=== PATIENT | female | born 1965 | race Caucasian/White ===

== ENCOUNTER 2017-04-18 21:46 | Inpatient (IN) | payer BC, OTHER ==
--- NOTE | ~2017-04-18 | CR72 ---
[facility] A Service of [facility] & [facility] RADIOLOGY TEXT RESULTS PATIENT: ROBBIN JUAREZ LOCATION: [facility] [address]-12 : [birth year] UNIT #: [id number] AGE: [address]: Evette Bender MD SEX: F ORDER DR: [id number] [facility] [address] [facility] [address] [place], [place] [address] [id number] I MR#: [id number] Acc #: [id number] NAME: ROBBIN JUAREZ : 1965 SEX: F STUDY DATE/TIME: 04/18/2017 23:17 UNIT: CED ROOM: 62812 STUDY DESCRIPTION: CR Chest Single View Portable Attending Physician: Evette Bender M.D. Ordering Physician: Carson Valles M.D. Primary Care Physician: Judy Burgos M.D. MEDICAL IMAGING REPORT This report is preliminary unless electronic signature is present EXAM Single view chest INDICATIONS Shortness of air and cough. FINDINGS Single portable AP view of the chest compared to 11/24/2016. Heart and mediastinal contours are normal. The lungs are clear. No pleural effusion. IMPRESSION No acute findings. Dictated by... Josue Will M.D. THIS IS AN ELECTRONICALLY VERIFIED REPORT Josue Will M.D. at 04/19/2017 3:25 AM RPC/ermias TD: 04/19/2017 03:16 JOB #: [id number] MEDICAL IMAGING REPORT Page 1 of 1 COPY
--- NOTE | ~2017-04-18 | EKG ---
PATIENT: ROBBIN JUAREZ UNIT #: [id number] Ventricular Rate: 113 BPM Atrial Rate: 113 BPM P-R Interval: 160 ms QRS Duration: 80 ms Q-T Interval: 346 ms QTC Calculation(Bezet): 474 ms P Steedman: 49 degrees Calculated R Steedman: 44 degrees Calculated T Steedman: 44 degrees Diagnosis Line: Sinus tachycardia Diagnosis Line: Possible Left atrial enlargement Diagnosis Line: Borderline ECG Diagnosis Line: When compared with ECG of 07-JAN-2011 11:30, Diagnosis Line: Vent. rate has increased BY 43 BPM Diagnosis Line: Confirmed by YING CERRATO MD ([id number]) on Diagnosis Line: 04/20/2017 8:46:33 AM INTERPRETING MD: SAQIB PINZON
--- NOTE | ~2017-04-18 | BMI ---
[facility] Nutrition Therapy DATE: 04/19/17 Patient: ROBBIN Bishop READER Physician: JONAS Address: [address] Room/Bed: [address] [place] [address], Zip: [place] [address] Admit Date: 04/19/17 Date of : [birth year] Height: 4 11 Weight: 204 92.53 HIGH BMI NOTE: DX: 51 Y.O. FEMALE ADMITTED FOR RESP FAILURE, ASTHMA EXAC ANTHROPOMETRICS: 4'11", WT: 203# (92 KG), BMI: 41.0 DIET: CC INTERVENTION: 1. CC DIET RECOMMENDATIONS: 1. RECOMMEND TO ADD HH TO CURRENT DIET ORDER ABOVE TO PROMOTE GRADUAL WEIGHT LOSS TOWARDS HEALTHY BMI (19.0-25.0) OR +/-10%IBW RD WILL F/U PER PROTOCOL Respectfully, LICO CARLSON MS, RD, LD Food and Nutrition[facility] cc: client file
--- NOTE | ~2017-04-18 | HP ---
Unit #: [id number] #: [id number] Patient: ROBBIN JUAREZ [id number] [address] [place], [place] [address] [id number] I MR#: [id number] NAME: ROBBIN JUAREZ. ROOM: 22666 Age: 51 Sex: F Admission Date: 04/19/2017 : 1965 Attending Physician: Evette Bender M.D. Primary Care Physician: Judy Burgos M.D. HISTORY AND PHYSICAL CHIEF COMPLAINT Asthma exacerbation with acute hypoxic respiratory failure. HISTORY This pleasant 51-year-old female with asthma, hypothyroidism is admitted for asthma exacerbation. The patient was in her usual state of health until two to three days prior to admission when she developed a deep cough, occasionally productive yellow sputum with bronchospasm, shortness of breath, malaise, chills, and decreased energy. She presented to this emergency department where her O2 sats were as low as 89% to 91% on range of motion air. Chest x-ray is negative. She was treated with 125 mg of Solu-Medrol and 10 mL of Robitussin AC. Currently, her breathing has improved. PAST MEDICAL HISTORY 1. Anxiety and depression. 2. Hypothyroidism. 3. Seasonal allergies. 4. Genital HSV. 5. Asthma. 6. Tendonitis versus plantar fasciitis. 7. BTL. 8. Surgery for heel spurs. ALLERGIES Keflex, penicillin and sulfa. HOME MEDICATIONS 1. Acyclovir daily. 2. Singulair daily. 3. Zyrtec daily. 4. Synthroid 0.05 mg daily. 5. Ventolin as needed. 6. Flonase nasal spray. FAMILY HISTORY Malignancy. Negative for heart or lung disease. SOCIAL HISTORY The patient lives with her boyfriend and children. Was smoking on pack per day of tobacco until three years ago when she stopped smoking. Seldom drinks alcohol. Unit #: [id number] #: [id number] Patient: ROBBIN JUAREZ REVIEW OF SYSTEMS Notable for shortness of breath, wheezing, productive cough, depression/anxiety, hypothyroidism, seasonal allergies, above mentioned surgeries, genital HSV and plantar fasciitis along with asthma. All other systems were reviewed and are otherwise negative. PHYSICAL EXAMINATION GENERAL APPEARANCE: Pleasant, obese 51-year-old female, currently in no acute distress. VITAL SIGNS: Temperature 98.2, pulse 111, respirations 20, blood pressure 150/93. O2 saturations were as low was 89% to 91% on room air. HEENT: Eyes PERRLA. Extraocular muscles are intact. Pharynx is benign. NECK: Supple without adenopathy or thyromegaly. CHEST: Rhonchi and expiratory wheeze. CARDIAC: Normal S1 and S2 without murmur. ABDOMEN: Bowel sounds are present. No hepatosplenomegaly, tenderness or masses. EXTREMITIES: Without clubbing, cyanosis or edema. Pedal pulses are present. NEUROLOGIC: The patient is awake, alert, oriented. Cranial nerves are intact. Equal strength throughout. DIAGNOSTIC STUDIES LABORATORY: Admission labs - hematocrit is 37.7, normal white count and platelet count. SMA-12 - glucose is 114. Cardiac markers are negative. IMAGING: Chest x-ray - no acute disease. CARDIOVASCULAR: EKG - sinus tachycardia, rate 113. ASSESSMENT 1. Asthma exacerbation secondary to bronchitis with acute hypoxic respiratory failure. 2. Hypothyroidism. 3. Seasonal allergies. PLANS 1. Zithromax, sputum C and S. 2. Duo-Nebs, steroids and mucolytics. 3. DVT prophylaxis. Dictated by Evette Bender M.D. AML/df TD: 04/19/2017 05:13 JOB #: [id number] Unit #: [id number] #: [id number] Patient: ROBBIN JUAREZ HISTORY AND PHYSICAL Page 1 of 1 X Evette Bender MD X HISTORY AND PHYSICAL
--- NOTE | ~2017-04-18 | DS ---
Unit #: [id number] #: [id number] Patient: ROBBIN JUAREZ [id number] [address] [id number] I MR#: [id number] NAME: ROBBIN JUAREZ. ROOM: 236 Age: 51 Sex: F Admission Date: 04/19/2017 : 1965 Discharge Date: Attending Physician: Malu Quintanilla M.D. Primary Care Physician: Judy Burgos M.D. DISCHARGE SUMMARY DISCHARGE DIAGNOSES 1. Acute hypoxic respiratory failure. 2. Acute asthma with exacerbation. 3. Acute bronchitis. 4. Morbid obesity, body mass index 41. 5. Hypertension, borderline. 6. Hyperglycemia, likely secondary to steroids. 7. Hypothyroidism. 8. Seasonal allergies. CONSULTATIONS None. PROCEDURES None. DIAGNOSTIC TESTING CARDIOVASCULAR: EKG - Sinus tachycardia. LABORATORY: WBC 9.4, hemoglobin 12.1, platelets 277. Creatinine 0.8, glucose 291. ALLERGIES Penicillin, sulfa, cephalexin. DISCHARGE MEDICATIONS 1. Cetirizine 10 mg p.o. daily. 2. Valtrex 500 p.o. daily (home medication). 3. Singulair 10 mg daily. 4. Naproxen 500 p.o. b.i.d. 5. Synthroid 50 mcg p.o. daily. 6. Albuterol Mini-Neb 3 mL inhalation t.i.d. p.r.n. shortness of breath. 7. Prednisone tapering dose. HOSPITALIZATION COURSE A 51 year old admitted because of shortness of breath. Acute hypoxic respiratory failure from asthma. Currently off oxygen. Saturation greater than 90%. Asthma with exacerbation. Started on IV Solu-Medrol and albuterol. Currently breathing better. Patient will be discharged on albuterol Mini-Neb, prednisone tapering dose and Spiriva. Unit #: [id number] #: [id number] Patient: ROBBIN JUAREZ Morbid obesity secondary to calories. Hypertension, borderline. Likely secondary to steroids. Follow with PCP. I will not be starting her medicines yet. Hyperglycemia secondary to steroids. Patient did not have history of diabetes. High risk of diabetes. Patient will follow PCP with followup on that also. DISCHARGE DISPOSITION Discharge home. Dictated by... Danika Short TD: 04/20/2017 12:43 JOB #: [id number] DISCHARGE SUMMARY Page 1 of 1 X Malu Quintanilla MD X DISCHARGE SUMMARY
[~2017-04-18 21:46] MED LIST: ACETAMINOPHEN PO; ALEVE PO; ALLEGRA180 MG PO; CELEXA PO; ECOTRIN81 M1 PO; FERGON240 ( 27 ) PO; FLEXERIL10 MG PO; KCL PO; MULTI-VITAMIN1 TAB PO; NAPROSYN500 MG PO; NAPROXEN PO; SINGULAIR PO; SYNTHROID PO; TRICOR145 MG PO; VALACYCLOVIR500 MG PO; VALTREX500 MG PO; VERAMYST10 GM; VERAMYST10 GM NS; ZYRTEC PO; ZYRTEC10 M1 PO
[2017-04-18 23:46] LABS: BASOPHIL% 0.4 % (0-2.5); EOSINOPHIL# 0.3 X10e3 (0-0.7); EOSINOPHIL% 2.8 % (0.0-7.0); HEMATOCRIT 37.7 % (35.0-45.0); HEMOGLOBIN 12.5 gm/dL (12.0-16.0); LYMPHOCYTE# 1.9 X10e3 (1.0-3.5); LYMPHOCYTE% 19.4 % (17.0-45.0); MEAN CELL VOLUME 86.8 FL (83-96); MEAN CORPUSCULAR HEMOGLOBIN 28.8 PG (28-34); MEAN CORPUSCULAR HGB CONC 33.2 g/dL (30-36); MEAN PLATELET VOLUME 7.7 FL (6.5-11.5); MONOCYTE# 0.7 X10e3 (0-1.0); MONOCYTE% 7.8 % (3.0-12.0); NEUTROPHIL# 6.7 X10e3 (1.5-7.1); NEUTROPHIL% 69.6 % (40-75); PLATELET COUNT 284 X10e3 (140-420); RED BLOOD COUNT 4.35 X10e (3.90-5.30); RED CELL DISTRIBUTION WIDTH 14.4 % (11.0-15.5); WHITE BLOOD COUNT 9.6 X10e3 (4.0-10.5)
[2017-04-18 23:57] LABS: POC - CKMB <1.0 ng/mL (0.0-7.9); POC - TROPONIN <0.05 ng/mL (<=0.05)
[2017-04-19 00:07] LABS: DIFF IND NO
[2017-04-19 00:10] LABS: ALKALINE PHOSPHATASE 87 U/L (32-92); ALT (SGPT) 21 U/L (10-40); AST (SGOT) 18 U/L (10-42); BILIRUBIN,TOTAL 0.5 mg/dL (0.2-2.0); BLOOD UREA NITROGEN 14 mg/dL (9-23); CARBON DIOXIDE 27 mmol/L (22-31); CHLORIDE 106 mmol/L (100-111); CREATININE SERUM 0.8 mg/dL (0.6-1.4); GLOM FILT RATE Estimated 85.4 mL/min (>60); GLUCOSE FASTING 114 mg/dL (70-110); POTASSIUM 3.5 mmol/L (3.5-5.1); PROTEIN TOTAL SERUM 7.5 g/dL (6.0-8.3); SODIUM 139 mmol/L (135-145)
[2017-04-19 00:13] LABS: BILIRUBIN, DIRECT <0.1 mg/dL (0.0-0.2); BILIRUBIN,INDIRECT 0.4 mg/dL (0.0-0.9)
[2017-04-19] MEDS ORDERED: ZYRTEC10 M1 PO (02:55)
[2017-04-19] MEDS ORDERED: NAPROSYN500 MG PO (02:57)
[2017-04-19] MEDS ORDERED: SYNTHROID25 MCG PO (02:57)
[2017-04-19] MEDS ORDERED: VALTREX500 MG PO (02:58)
[2017-04-19] MEDS ORDERED: SINGULAIR PO (02:58)
[2017-04-19 07:54] LABS: BUN/CREATININE RATIO 21.25; CALCIUM SERUM 8.8 mg/dL (8.4-10.2); CREATININE SERUM 0.8 mg/dL (0.6-1.4); GLOM FILT RATE Estimated 85.4 mL/min (>60); POTASSIUM 4.1 mmol/L (3.5-5.1)
[2017-04-19 08:08] LABS: POC - CKMB <1.0 ng/mL (0.0-7.9); POC - TROPONIN <0.05 ng/mL (<=0.05)
[2017-04-19 12:07] LABS: BASOPHIL% 0.3 % (0-2.5); EOSINOPHIL% 0.1 % (0.0-7.0); HEMATOCRIT 37.6 % (35.0-45.0); HEMOGLOBIN 12.1 gm/dL (12.0-16.0); LYMPHOCYTE% 10.6 % (17.0-45.0); MEAN CORPUSCULAR HEMOGLOBIN 28.4 PG (28-34); MEAN CORPUSCULAR HGB CONC 32.3 g/dL (30-36); MEAN PLATELET VOLUME 8.5 FL (6.5-11.5); MONOCYTE# 0.1 X10e3 (0-1.0); NEUTROPHIL# 8.2 X10e3 (1.5-7.1); PLATELET COUNT 277 X10e3 (140-420); RED BLOOD COUNT 4.28 X10e (3.90-5.30); RED CELL DISTRIBUTION WIDTH 14.5 % (11.0-15.5); WHITE BLOOD COUNT 9.4 X10e3 (4.0-10.5)
[2017-04-19 12:09] LABS: DIFF IND NO
[2017-04-20] MEDS ORDERED: PREDNISONE (12:31)
[2017-04-20] MEDS ORDERED: ALBUTEROL2.5 MG/3 M (12:32)
[2017-07-14] MEDS ORDERED: MICROZIDE12.5 M1 PO (15:15)
[2017-07-14] MEDS ORDERED: SINGULAIR PO (15:16)
[2017-07-14] MEDS ORDERED: SYMBICORT INH (15:17)
[2017-07-14] MEDS ORDERED: ZYRTEC10 M2 PO (15:17)
[2017-07-14] MEDS ORDERED: SYNTHROID75 MCG PO (15:18)
[2017-07-14] MEDS ORDERED: VALTREX500 MG PO (15:18)
[2017-07-14] MEDS ORDERED: NAPROSYN-EC500 MG PO (15:18)
[2017-07-14] MEDS ORDERED: ZESTRIL10 M1 PO (15:19)
[2017-07-14] MEDS ORDERED: ALBUTEROL17 GM INH (15:26)
== END 2017-04-20 18:13 | disposition home or self-care (01) | DRG 202 ==
LOC: CED 21:46 → C2A 04-19 01:40 → CEDOF 04-19 01:40 → CED 04-19 01:45 → C2A 04-19 07:42 → CEDOF 04-19 07:42 → C2A 04-19 07:42
PROVIDERS: Emergency Medicine; Internal Medicine
DX: J45.901 Unspecified asthma with (acute) exacerbation (principal); J96.01 Acute respiratory failure with hypoxia; Z68.41 Body mass index [BMI] 40.0-44.9, adult; Z87.891 Personal history of nicotine dependence; J20.9 Acute bronchitis, unspecified; E66.01 Morbid (severe) obesity due to excess calories; I10 Essential (primary) hypertension; R73.9 Hyperglycemia, unspecified; T38.0X5A Adverse effect of glucocorticoids and synthetic analogues, initial encounter; E03.9 Hypothyroidism, unspecified; J30.2 Other seasonal allergic rhinitis; F41.9 Anxiety disorder, unspecified; F32.9 Major depressive disorder, single episode, unspecified; Z88.1 Allergy status to other antibiotic agents; Z88.0 Allergy status to penicillin; Z88.2 Allergy status to sulfonamides
CPT/HCPCS: 36415; 71010; 80048; 80076; 82553; 84484; 85025; 87070; 87205; 93005; 94640; 94760; 96374; 99285; J0456; J1650; J2920; J2930

== ENCOUNTER → 2017-07-15 | Day surgery (SDC) | payer BC, OTHER ==
[~2017-07-15] MED LIST changes: +ALBUTEROL17 GM INH; +ALBUTEROL2.5 MG/3 M; +MICROZIDE12.5 M1 PO; +NAPROSYN-EC500 MG PO; +PREDNISONE; +SYMBICORT INH; +SYNTHROID25 MCG PO; +SYNTHROID75 MCG PO; +ZESTRIL10 M1 PO; +ZYRTEC10 M2 PO
--- NOTE | ~2017-07-15 | OR ---
Unit #: [id number] #: [id number] Patient: ROBBIN JUAREZ [id number] [facility]. [place], [place] [address] [id number] MR#: [id number] NAME: ROBBIN JUAREZ ROOM: Date of Procedure: 07/15/2017 Admission Date: 07/15/2017 Surgeon: Rohan Casey M.D. : 1965 Attending Physician: Rohan Casey M.D. Primary Care Physician: Judy Burgos M.D. OPERATIVE REPORT PRIMARY CARE PHYSICIAN Judy Burgos M.D. PREOPERATIVE DIAGNOSIS Colorectal cancer screening in an average-risk patient. PROCEDURE PERFORMED Colonoscopy up to cecum and terminal ileum with excellent preparation and good visualization. POSTOPERATIVE DIAGNOSES Mild sigmoid diverticulosis, otherwise normal examination up to cecum and terminal ileum. The quality of the prep was excellent. No polyps were seen. RECOMMENDATIONS Repeat colonoscopy in 10 years. SEDATION USED MAC. DESCRIPTION OF PROCEDURE Following detailed explanation of the potential risks and complications of a colonoscopy, namely perforation, bleeding, and complication related to sedation, the patient was brought to GI lab and laid in the left lateral decubitus position. A digital rectal examination was performed, which was normal. Lubricated tip of Olympus video colonoscope was inserted through the anus and advanced under direct vision. The scope was advanced past rectosigmoid into descending colon. Scant small diverticula were noted in this area. The scope tip was then navigated all the way up to cecum with visualization of the ileocecal valve and the appendiceal orifice. Preparation was excellent with good visualization and photodocumentation was obtained. Last several inches of the terminal ileum were also visualized after intubation of the ileocecal valve and appeared normal. Successive segments of the colonic mucosa were examined upon withdrawal and appeared unremarkable. There being no polyps, mass lesions, or AVMs. Other than the scant diverticula seen earlier, no other abnormalities were noted. The patient did not have any hemorrhoids at the anal verge. The patient tolerated the procedure without any postprocedure complications. Dictated by... Unit #: [id number] #: [id number] Patient: ROBBIN JUAREZ Danika Grace/soo TD: 07/15/2017 13:39 JOB #: [id number] CC: Judy Burgos M.D. OPERATIVE REPORT Page 1 of 1 X Rohan Casey MD PROCEDURE OPERATIVE NOTE
== END | disposition home or self-care (01) ==
LOC: COPS 09:23
DX: Z12.11 Encounter for screening for malignant neoplasm of colon (principal); K57.30 Diverticulosis of large intestine without perforation or abscess without bleeding; F17.210 Nicotine dependence, cigarettes, uncomplicated; Z88.0 Allergy status to penicillin; Z88.1 Allergy status to other antibiotic agents; Z88.2 Allergy status to sulfonamides; Z98.51 Tubal ligation status
CPT/HCPCS: J2250